=== PATIENT | male | born 1990 | race Caucasian/White ===

== ENCOUNTER 2020-02-02 06:19 | Emergency (ER) | payer SELFPAY ==
[2020-02-02 06:20] VITALS: BP 143/71; PULSE 89; RESP 18; TEMP 36.1; O2SAT 97; BMI 34.9
--- NOTE | 2020-02-02 06:33 | ED.DCSUM_ITS ---
History of Present Illness Chief Complaint: Sore Throat Informant: Patient Narrative: Patient is a 30-year-old previously healthy male who presents to the emergency department for sore throat. He states that it feels swollen. He felt short of breath because of the swelling. His initial symptoms started last night. He states that it does hurt to swallow. He denies fevers but states he has had some intermittent chills. No nausea/vomiting. No diarrhea. He has not been coughing. No known sick contacts. He has also been sneezing. He took Benadryl around 3 AM which he has not gotten significant relief from. He has a history of strep throat as a child but not recently. No headache or stiff neck. No chest pain. No abdominal pain. He denies any new exposures or diet changes. He denies any voice change. Past Medical History - Allergies and Home Meds Allergies/Adverse Reactions: Allergies No Known Allergies Allergy (Verified 02/02/20 06:23) Primary Care Physician: NOT,DEFINED [Primary Care Provider] - Prior records reviewed: Yes Past Medical History: None Surgical History: noncontributory Smoking Status: Never smoker Alcohol: Occasional Review of Systems All systems negative except as indicated General: Reports: Chills. Denies: Fever, Sweats Eyes: Denies: Visual changes - bilaterally, Diplopia ENT: Reports: Sore throat. Denies: Rhinorrhea Cardiovascular: Denies: Chest pain, Palpitations Respiratory: Denies: Cough, Dyspnea on exertion Gastrointestinal: Denies: Abdominal pain, Nausea, Vomiting, Diarrhea Genitourinary: Denies: Dysuria, Hematuria, Frequency Musculoskeletal: Denies: Back pain, Extremity Pain Skin: Denies: Rash, Wounds Neurological: Denies: Headache, Weakness, Numbness Physical Exam Vital Signs/Narrative: Vital Signs Temp Pulse Resp BP Pulse Ox 02/02/20 06:20 97 F L 89 18 143/71 H 97 General: Well nourished, Well developed, No Acute Distress Head: Normocephalic, Atraumatic Eyes: Perrl, EOMI ENT: Moist mucous membranes, No rhinorrhea, - - Uvula does not appear swollen b ut is midline. Tonsillar's are enlarged without any significant exudates. No obvious fluctuating abscess present. Clear oropharynx. No stridor. Neck: Supple, Nontender, - - Cervical lymphadenopathy present. Cardiovascular: Regular rate, Regular rhythm, No murmurs Respiratory: No distress, CTA bilaterally, Chest nontender Abdomen: Soft, Nontender, Nondistended, Normal bowel sounds Back: Nontender, Normal Inspection Extremities: Nontender, No edema Skin: Normal color, No rash Neurological: Alert, Oriented x3, Normal Strength, Normal Sensation Psychological: Normal affect, Normal Mood Diagnostic/Tx/Re-eval - Medical Decision Making Patient presents to the emerge department for sore throat and painful swallowing. He felt like his throat was swollen. Upon arrival to the emergency department he is in no acute distress. He is nontoxic-appearing. Vital signs within normal limits. He is afebrile. On physical exam his uvula is swollen and erythematous but midline. Strep swab obtained and will give a dose of Decadron and Tylenol for symptomatic treatment. Patient does not appear to have an epiglottitis or retropharyngeal abscess. No evidence of Karla's angina. I believe his symptoms are most likely viral in nature. His strep test did come back negative. He is feeling better after Decadron and Tylenol. He does feel comfortable going home at this time. He has not had any issues with handling secretions. Able to swallow here in the ED. We will have him follow-up with his PCP. Warning signs and symptoms for which to return to the ED including any voice change, developing a fever, inability to swallow or difficulty breathing are reviewed. He understands and is agreeable this plan. All questions answered. ED Disposition - Plan for ED Patient: Disposition: Home or Assisted Living Diagnosis: Pharyngitis Instructions: ED Pharyngitis, Viral Referrals: NOT,DEFINED [Primary Care Provider] - 2 Days Additional Instructions: Your symptoms are likely caused by a virus. Strep test was negative. This is treated symptomatically with ibuprofen and tylenol. If you develop difficulty swallowing, fevers, change in voice return to the ED. Otherwise follow up with your PCP. Sore throat is not consistent with COVID-19.
[2020-02-02] MEDS: Acetaminophen 325 MG Tablet 650 MG PO (06:44)
[2020-02-02] MEDS: dexAMETHasone 10 MG/ML Vial PO.IVFORM (06:45)
[2020-02-02 07:40] VITALS: RESP 17
== END 2020-02-02 07:48 | disposition home or self-care (01) ==
LOC: ED 07:31
PROVIDERS: Emergency Provider Emergency Medicine
DX: J02.9 Acute pharyngitis, unspecified (principal)
CPT/HCPCS: 87880; 96374; 99282

== ENCOUNTER 2020-02-20 15:48 | Emergency (ER) | payer SELFPAY ==
[2020-02-20 15:49] VITALS: BP 157/95; PULSE 84; RESP 16; TEMP 35.9; O2SAT 100; BMI 31.7
--- NOTE | 2020-02-20 15:54 | ED.DCSUM_ITS ---
History of Present Illness Chief Complaint: Rash Informant: Patient Onset: Days Context: Sudden Onset Timing: Continuous Quality: Erythematous pruritic rash Location: Face, postauricular, neck and upper extremities Current Severity: Moderate Maximum Severity: Moderate Worsened by: Nothing Relieved by: Nothing Associated Symptoms: No systemic symptoms Narrative: Patient is a 30-year-old male presents with erythematous pruritic rash that started . He denies any systemic symptoms. He denies any allergies. He is unaware of any thing he may have come in contact with that could cause this. Prior similar symptoms: No Recent Illness/Hospitalization: No - Past Medical History (1) No significant past medical history Status: Acute Past Medical History - Allergies and Home Meds Allergies/Adverse Reactions: Allergies No Known Allergies Allergy (Verified 02/20/20 15:50) Primary Care Physician: Care Physician,No Primary [Primary Care Provider] - Prior records reviewed: No Past Medical History: None Surgical History: noncontributory Lives: Spouse/ Significant Other Smoking Status: Never smoker Alcohol: None Drugs: None Review of Systems General: Denies: Chills, Fever, Malaise Eyes: Denies: Visual changes - bilaterally, Blurred Vision - bilaterally ENT: Denies: Bilateral ear pain, Rhinorrhea, Sore throat Cardiovascular: Denies: Chest pain, Palpitations Respiratory: Denies: Dyspnea, Dyspnea on exertion Gastrointestinal: Denies: Nausea, Vomiting, Diarrhea Musculoskeletal: Denies: Myalgias, Arthralgias Skin: Reports: Rash. Denies: Wounds Hematologic: Denies: Easy bruising, Easy bleeding Allergy: Denies: Swelling of the mouth, Swelling of the tongue Physical Exam Vital Signs/Narrative: Vital Signs Temp Pulse Resp BP Pulse Ox 02/20/20 15:49 96.6 F L 84 16 157/95 H 100 Inital Vital Signs reviewed: Yes General: Well nourished, Well developed, Obese, No Acute Distress Head: Normocephalic, Atraumatic Eyes: Perrl, EOMI. Negative for: Scleral icterus ENT: No rhinorrhea. Negative for: Nasal congestion, Sinus tenderness Neck: Supple, Nontender Cardiovascular: Regular rate, Regular rhythm Respiratory: No distress Skin: Normal color, Rash - Erythematous inflammatory rash with mild crusting. Neurological: Alert, Oriented x3, Cranial nerves II-XII grossly intact, Normal Strength, Normal Sensation, Normal Gait Psychological: Normal affect Diagnostic/Tx/Re-eval - Medical Decision Making She has a pruritic erythematous rash that is consistent with contact dermatitis. Since he has no systemic symptoms patient was treated with prednisone and discharged to home. The rash does not look infectious. ED Disposition - Plan for ED Patient: Disposition: Home or Assisted Living Diagnosis: Contact dermatitis Instructions: ED Contact Dermatitis Prescriptions: Prednisone [Deltasone] 40 mg PO DAILY #10 tab Transmission Status: Pending to [facility] Referrals: Care Physician,No Primary [Primary Care Provider] - Doctor,Your [STAFF PHYSICIAN] - 1 Week if not improving
[2020-02-20] MEDS: predniSONE 20 MG Tablet 60 MG PO (16:03)
[2020-02-20 16:04] VITALS: BP 157/95; PULSE 84
== END 2020-02-20 16:06 | disposition home or self-care (01) ==
LOC: ED 16:00
PROVIDERS: Emergency Provider Emergency Medicine
DX: L25.9 Unspecified contact dermatitis, unspecified cause (principal); E66.9 Obesity, unspecified
CPT/HCPCS: 99283

== ENCOUNTER 2020-11-28 08:05 | Emergency (ER) | payer MEDICARE, SELFPAY ==
[2020-11-28 08:05] VITALS: BP 185/91; PULSE 100; RESP 16; TEMP 36.9; O2SAT 97; BMI 34.0
[2020-11-28 08:13] VITALS: RESP 16
[2020-11-28] MEDS: Ibuprofen 600 MG Tablet PO (08:31)
[2020-11-28 08:40] VITALS: TEMP 37.1
--- NOTE | 2020-11-28 08:46 | EDS_ITS ---
HPI History of Present Illness Chief Complaint: Weakness Informant: patient Narrative Narrative: Patient is a 30-year-old male with no significant past medical history presenting with concern for Covid. Patient's daughter tested positive this morning. He notes last night he started feeling weak and his knees gave out on him. He was coughing. He states he feels like crap. He does have some mild shortness of breath. Denies any chest pain. He had a temperature of 99.6 last night. He took some DayQuil around 7AM with a decongestant in it. He did not have his Covid vaccine. Symptoms going on for the past 2 days. No other complaints at this time. PFSH PFSH Medical History no medical history Home Medications prednisone 40 mg PO DAILY #10 tab 02/20/20 [Rx Last Taken Unknown] ibuprofen 600 mg PO Q6H PRN #30 tab 11/28/20 [Rx Last Taken Unknown] Allergy/AdvReac Type Severity Reaction Status Date / Time No Known Allergies Allergy Verified 11/28/20 08:07 Social History Smoking Status: Never smoker ROS ROS ED Constitutional Constitutional ED: Reports chills, fever(s) and sweats Eyes Eyes: Denies change in vision ENT ENT ED: Denies ear pain, rhinorrhea or sore throat Cardiovascular Cardiovascular: Denies chest pain Respiratory/Chest Respiratory/Chest: Reports cough, dyspnea and dyspnea on exertion Gastrointestinal Gastrointestinal: Denies abdominal pain, nausea or vomiting Genitourinary Genitourinary ED: Denies dysuria Musculoskeletal Musculoskeletal: Reports myalgias; Denies arthralgias Integumentary Denies rash Neurologic Neurologic: Reports headache(s) and weakness Psychiatric Psychiatric: Denies depression EXAM Physical Exam Const Vital Signs: 11/28/20 08:05 11/28/20 08:13 11/28/20 08:40 Temperature 98.4 F 98.8 F Temperature Source Temporal Oral Pulse Rate 100 Respiratory Rate 16 16 Respiratory Effort Normal Non-Labored Respiratory Pattern Normal Blood Pressure 185/91 H Blood Pressure Mean 122 Pulse Ox 97 Oxygen Delivery Method Room Air 11/28/20 09:06 Temperature Temperature Source Pulse Rate Respiratory Rate 16 Respiratory Effort Respiratory Pattern Blood Pressure Blood Pressure Mean Pulse Ox Oxygen Delivery Method Positive well nourished and well developed General Appearance ED: well developed HEENT Reports TM's clear and moist mucous membranes Tympanic Membrane ED: Yes TM's clear Eyes PERRL and EOMs intact bilaterally Neck no lymphadenopathy and supple Chest Wall inspection of chest normal Resp normal respiratory effort and clear to auscultation bilaterally Cardio regular rate and no murmurs Rate: tachycardic GI normal to inspection, nondistended, normoactive bowel sounds Extremity normal to inspection General Extremety ED: Negative for edema or tenderness General Extremity: Negative for edema Neuro oriented x3 Sensorium / Orientation: alert Motor Exam: Negative for general weakness Psych mental status grossly normal Skin no rashes or lesions noted MDM MDM MDM Narrative Medical decision making narrative: Patient evaluated for 2 days of Covid-like symptoms. He has a positive contact. He is positive in the ER. He is hypertensive however suspect is from the [id number] cough medicine he took prior to arrival. He is not hypoxic. Patient is a candidate for monoclonal antibody due to his weight. He is referred for monoclonal antibody. He will be treated symptomatically with Motrin and [id number] cold and flu medicines. Counseled to take decongestions for high blood pressure to prevent further hypertension. Counseled on return precautions. Discharged home in stable condition. Discharge Plan Triage Chief Complaint: Weakness ED Provider: Keena Isabel Dx/Rx/DC Orders Clinical Impression: COVID-19 virus infection Instructions: Coronavirus Disease 2019 (COVID-19): Caring for Yourself or Others Prescriptions: New ibuprofen 600 mg tablet 600 mg PO Q6H PRN (Reason: fever or pain) Qty: 30 RF: 0 No Action prednisone 20 MG tablet 40 mg PO DAILY Qty: 10 RF: 0 Other Ambulatory Orders: COVID Outpatient Monoclonal Antibody Referral (Routine) Timeframe: 1 Day Facility: [facility] - Location: [facility] Ordered By: Dr. Keena Isabel Primary Care Provider: Care Physician,No Primary Referrals: Annie iLlly DO [STAFF PHYSICIAN] - Care Physician,No Primary [Primary Care Provider] - Disposition Disposition: Home, Self Care Discharge Date/Time: 11/28/20 09:07
[2020-11-28 09:06] VITALS: RESP 16
== END 2020-11-28 09:07 | disposition home or self-care (01) ==
PROVIDERS: Emergency Provider Emergency Medicine
DX: U07.1 COVID-19 (principal)
CPT/HCPCS: 87426; 99283

== ENCOUNTER 2021-02-22 18:46 | Emergency (ER) | payer SELFPAY ==
[2021-02-22 18:47] VITALS: BP 152/94; PULSE 78; RESP 15; TEMP 35.7; O2SAT 98; BMI 36.1
--- NOTE | 2021-02-22 19:32 | US_ITS ---
STUDY: ABDOMINAL ULTRASOUND - RIGHT UPPER QUADRANT REASON FOR VISIT: Male, 31 years old PAIN-RUQ TECHNIQUE: Ultrasound evaluation of the right upper quadrant was performed with real-time and static ferrera-scale imaging. TECHNICAL QUALITY: Adequate. COMPARISON: None. FINDINGS: Liver: The liver measures 17.2 cm. There is diffusely increased echogenicity of the liver. The bile ducts are within normal limits. There is hepatic color flow. The direction of portal flow is hepatopetal. There is no demonstrated mass lesion. Gallbladder: Gallbladder is mildly distended with maximal linear dimension of 11.1 cm. Intraluminal stones are present with a stone at the level of the gallbladder neck. A sonographic Caba sign was reported. No. Cholecystic fluid. No ductal dilatation. Common Bile Duct (C.B.D.): The common bile duct measures 6 mm. Pancreas: Normal size of the head, body and tail of the pancreas. There is normal echogenicity of the pancreas. There is no demonstrated pancreatic mass or cyst. Pancreatic tail was not visualized. Right Kidney: Normal size of the right kidney. The right kidney measures 11.2 x 5.8 x 7.1 cm.. Normal renal cortex. The right cortex measures 1.9 cm. There is no demonstrated renal mass or cyst. There is no right hydronephrosis. US/Gallbladder IMPRESSION: 1. Cholelithiasis, gallbladder is moderately distended. There is a calcification at the gallbladder neck, and there is a reported sonographic Caba sign. Findings consistent with developing cholecystitis. 2. No perinephric fluid collections, or ductal dilatation. 3. Fatty infiltration liver consistent with hepatic steatosis without focal hepatic masses or intrahepatic ductal dilatation. 4. Normal appearance of the RIGHT kidney. Electronically Signed: Nimesh Franklin MD at 21:13 EST Tel , Service support ,
--- NOTE | 2021-02-22 19:33 | ED.VIS.GI ---
HPI HPI - GI History of Present Illness Chief Complaint: Abd Pain Informant: patient Abdominal Pain/Flank Pain Onset: Yesterday Context: Sudden Onset Timing: Continuous Quality: Aching and Sharp Location: RUQ Worsened by: Food Relieved by: - (Vomiting) Nausea/Vomiting/Emesis GI Symptom: Positive for Nausea and Vomiting Quality: Negative for Blood streaks, Coffee ground and Hematemesis Diarrhea/Melena/Hematochezia GI Symptom: Negative for Diarrhea, Melena and Hematochezia Stool Quality: Negative for Black, Maroon and BRB per rectum Associated Symptoms Associated Symptoms: Negative for Dysuria and Hematuria Narrative Narrative: Patient presents with right upper quadrant abdominal pain that began last night. Patient states that began in his right upper quadrant. Patient states it improved last night and he was able to sleep. Patient states he ate something this morning and his pain came back. Patient states it began approximately 1 hour after eating. Patient states the pain radiates into his back. Patient states he got better after vomiting. Patient denies any hematemesis or coffee-ground emesis. Patient denies any diarrhea, melena, or hematochezia. Patient denies any dysuria or hematuria. PFSH PFSH Medical History no medical history Home Medications prednisone 40 mg PO DAILY #10 tab 02/20/20 [Rx Last Taken Unknown] ibuprofen 600 mg PO Q6H PRN #30 tab 11/28/20 [Rx Last Taken Unknown] hydrocodone-acetaminophen 1 tab PO Q6H PRN PRN 3 Days #10 tablet 02/22/21 [Rx Last Taken Unknown] ondansetron 4 mg PO Q8H PRN PRN #10 tab 02/22/21 [Rx Last Taken Unknown] Allergy/AdvReac Type Severity Reaction Status Date / Time No Known Allergies Allergy Verified 11/28/20 08:07 Surgical History no surgical history Social History Smoking Status: Never smoker ROS ROS ED Constitutional Constitutional ED: Denies chills or fever(s) Eyes Eyes: Denies blurry vision or change in vision ENT ENT ED: Denies rhinorrhea or sore throat Cardiovascular Cardiovascular: Denies chest pain or palpitations Respiratory/Chest Respiratory/Chest: Reports dyspnea; Denies cough Gastrointestinal Gastrointestinal: Reports abdominal pain, nausea and vomiting; Denies diarrhea or melena Genitourinary Genitourinary ED: Denies dysuria or hematuria Musculoskeletal Musculoskeletal: Reports back pain; Denies neck pain Integumentary Denies abscess or rash Neurologic Neurologic: Denies headache(s) or weakness Allergic/Immunologic Allergic/Immunologic ED: Denies mouth swelling or urticaria EXAM Physical Exam Const Vital Signs: 02/22/21 18:47 02/22/21 23:07 Temperature 96.2 F L Temperature Source Temporal Pulse Rate 78 81 Respiratory Rate 15 18 Blood Pressure 152/94 H 138/86 H Blood Pressure Mean 113 Pulse Ox 98 Oxygen Delivery Method Room Air Positive well nourished and well developed General Appearance ED: well developed HEENT Reports moist mucous membranes Neck supple and no JVD Resp normal respiratory effort and clear to auscultation bilaterally Cardio regular rate, regular rhythm and no murmurs GI normal to inspection, nondistended, normoactive bowel sounds and non-distended Auscultation: normoactive bowel sounds Palpation: soft and tender epigastric, RUQ and Caba's sign; Negative for guarding or rebound tenderness present Extremity normal to inspection General Extremety ED: Negative for edema or tenderness General Extremity: Negative for edema Neuro oriented x3, CN's II-XII intact bilaterally and no sensory deficits noted Sensorium / Orientation: alert Motor Exam: strength 5/5 throughout Psych mental status grossly normal Skin no rashes or lesions noted MDM MDM MDM Narrative Medical decision making narrative: Patient was given IV fluids, morphine, and Zofran. CBC shows a slight leukocytosis of 11.4. Comprehensive metabolic profile shows a normal bilirubin. AST was 264, ALT was 375, and alk phos was 134. The remainder was within normal limits. Urinalysis does not show any evidence of urinary tract infection. Gallbladder ultrasound was obtained. There is cholelithiasis. The gallbladder is moderately distended. There is a calcification at the gallbladder neck. There is no pericholecystic fluid. There is no ductal dilatation. This is consistent with developing cholecystitis. This was interpreted by the radiologist and reviewed by myself. Patient is resting comfortably on reevaluation. Case was discussed with Dr. Gutierres from general surgery. He stated that if the patient can tolerate p.o. fluids and bland diet, he may follow-up in his office on Saturday. Patient thinks he will be able to do this. Patient was given prescriptions for Zofran and Sibley. Patient was instructed to avoid fried foods, fatty foods, greasy foods. Patient was instructed to call Dr. Gutierres's office tomorrow to schedule appointment for Saturday. Patient understands and is agreeable with the plan. All questions were answered. Lab Data Attestation: I reviewed the patient's lab results. Labs: Laboratory Results - last 24 hr 02/22/21 02/22/21 02/22/21 19:00 19:13 19:13 WBC 11.4 H RBC 5.49 Hgb 15.6 Hct 46.6 MCV 84.9 MCH 28.4 MCHC 33.5 RDW Std Deviation 38.7 RDW Coeff of Narda 12.6 Plt Count 261 MPV 11.9 Immature Gran % (Auto) 0.300 Neut % (Auto) 57.9 Lymph % (Auto) 30.1 Fallon % (Auto) 8.8 Eos % (Auto) 2.3 Baso % (Auto) 0.6 Absolute Neuts (auto) 6.6 Absolute Lymphs (auto) 3.44 Nucleated RBC % 0 Sodium 141 Potassium 3.9 Chloride 105 Carbon Dioxide 31.0 Anion Gap 5 BUN 12 Creatinine 1.08 Estim Creat Clear Calc 99.10 Est GFR (MDRD) Af Amer 103 Est GFR (MDRD) Non-Af 85 BUN/Creatinine Ratio 11.1 Glucose 97 Calcium 9.3 Total Bilirubin 0.80 AST 264 H ALT 375 H Alkaline Phosphatase 134 H Total Protein 8.1 Albumin 3.7 Globulin 4.4 H Albumin/Globulin Ratio 0.8 L Lipase 101 Urine Color Ellyn Urine Clarity Clear Urine pH 5.0 Ur Specific [place] 1.025 Urine Protein 15 H Urine Glucose (UA) Normal Urine Ketones 5 H Urine Occult Blood 10 H Urine Nitrite Negative Urine Bilirubin Negative Urine Urobilinogen 1 H Ur Leukocyte Esterase Negative Urine RBC 0 SEEN Urine WBC 0 SEEN Ur Squamous Epith Cells 0 SEEN Urine Bacteria 0 SEEN Urine Mucus 0 SEEN Radiography Diagnostic Testing: Clinical Impression(s) from Imaging Studies Gallbladder Ultrasound 02/22/21 19:32 IMPRESSION: 1. Cholelithiasis, gallbladder is moderately distended. There is a calcification at the gallbladder neck, and there is a reported sonographic Caba sign. Findings consistent with developing cholecystitis. 2. No perinephric fluid collections, or ductal dilatation. 3. Fatty infiltration liver consistent with hepatic steatosis without focal hepatic masses or intrahepatic ductal dilatation. 4. Normal appearance of the RIGHT kidney. Electronically Signed: Nimesh Franklin MD at 21:13 EST Tel , Service support , Discharge Plan Triage Chief Complaint: Abd Pain ED Provider: Reid Douglas Dx/Rx/DC Orders Clinical Impression: Cholelithiasis and cholecystitis without obstruction Instructions: ED Abdominal Pain Gallstone Poss Prescriptions: New hydrocodone-acetaminophen [hydrocodone-acetaminophen] 1 TABLET tablet 1 tab PO Q6H PRN PRN (Reason: Pain) 3 Days Qty: 10 RF: 0 ondansetron [ondansetron] 4 MG tablet 4 mg PO Q8H PRN PRN (Reason: Nausea) Qty: 10 RF: 0 No Action prednisone 20 MG tablet 40 mg PO DAILY Qty: 10 RF: 0 ibuprofen 600 mg tablet 600 mg PO Q6H PRN (Reason: fever or pain) Qty: 30 RF: 0 Primary Care Provider: Care Physician,No Primary Referrals: Zander Gutierres MD [STAFF PHYSICIAN] - 3-5 Days (Call tomorrow to schedule an appointment on Saturday) Care Physician,No Primary [Primary Care Provider] - Disposition Disposition: Home, Self Care Discharge Date/Time: 02/22/21 23:08
[2021-02-22] MEDS: Ondansetron 4 MG/2 ML Vial IV (19:47)
[2021-02-22] MEDS: Morphine 4 MG/ML Syringe IV (19:47)
[2021-02-22] MEDS: 0.9% Normal Saline 1,000 ML 1000 ML IV (19:47)
[2021-02-22 19:55] LABS: Absolute Lymphocyte Count 3.44 X10^3/uL (0.83-4.51); Absolute Neutrophil Count 6.6 X10^3/uL (2.0-7.7); Basophil# 0.07 X10^3/uL; Basophil% 0.6 % (0-1); Eosinophil# 0.26 X10^3/uL; Eosinophils% 2.3 % (0-5); Hematocrit 46.6 % (40-54); Hemoglobin 15.6 g/dL (13.0-16.5); Lymphocyte # 3.44 X10^3/ul (0.83-4.51); Lymphocyte % 30.1 % (19-41); Mean Corp Hgb Conc 33.5 g/dL (32-36); Mean Corpuscular Hgb 28.4 pg (27.0-32.0); Mean Corpuscular Volume 84.9 fL (80-94); Mean Platelet Vol. 11.9 fl (6.2-12.0); Monocyte# 1.01 X10^3/uL; Monocyte% 8.8 % (0-10); NRBC Flagged by Analyzer 0 % (0-5); Neutrophil # 6.62 X10^3/uL (2.7-7.7); Neutrophil % 57.9 % (47-70); Platelet Count 261 K/mm3 (150-450); RBC Distribution Width CV 12.6 % (11.6-14.6); RBC Distribution Width SD 38.7 fl (35.1-43.9); Red Blood Count 5.49 M/mm3 (4.6-6.2); White Blood Count 11.4 K/mm3 (4.4-11.0)
[2021-02-22 20:02] LABS: Bacteria 0 SEEN /hpf (None Seen); Mucous, Urine 0 SEEN /hpf (<or=2+); Red Blood Cells-Urine 0 SEEN /hpf (0-5); Squamous Epithelial Cells - UA 0 SEEN /hpf (0-5); White Blood Cells 0 SEEN /hpf (0-5)
[2021-02-22 20:03] LABS: Color, Urine Amber (Yellow); Glucose, Dipstick Normal (Normal); Ketone-Dipstick 5 mg/dl (Negative); Leukocyte Esterase-Dipstick Negative /ul (Negative); Nitrite-Dipstick Negative (Negative); Occult Blood-Urine 10 /ul (Negative); Protein-Dipstick 15 mg/dl (Negative); Specific Gravity, Urine 1.025 (1.002-1.030); Urine Bilirubin Dipstick Negative (Negative); Urine Clarity Clear (Clear); Urine Urobilinogen 1 mg/dl (Normal)
[2021-02-22 20:04] LABS: ALB/GLOB Ratio 0.8 RATIO (0.9-2.4); AST(SGOT) 264 U/L (15-37); Alanine Aminotransfer ALT/SGPT 375 U/L (16-61); Albumin, Serum 3.7 g/dL (3.2-5.0); Alkaline Phosphatase 134 U/L (45-117); Anion Gap 5 (5-15); BUN 12 mg/dL (7-18); BUN/Creat Ratio 11.1 RATIO (10-20); Calcium,Total 9.3 mg/dL (8.5-10.1); Chloride 105 mmol/L (98-107); Creatinine, Serum 1.08 mg/dL (0.70-1.30); EST Glomerular Filtration Rate 85 mL/min (>60); Est Glom Filt Rate - Afr Amer 103 mL/min (>60); Globulin 4.4 g/dL (2.2-4.2); Glucose 97 mg/dL (74-106); Lipase 101 U/L (73-393); Potassium 3.9 mmol/L (3.5-5.1); Protein, Total 8.1 g/dL (6.4-8.2); Sodium Level 141 mmol/L (136-145)
[2021-02-22 23:07] VITALS: BP 138/86; PULSE 81; RESP 18
== END 2021-02-22 23:08 | disposition home or self-care (01) ==
PROVIDERS: Emergency Provider Emergency Medicine
DX: K80.10 Calculus of gallbladder with chronic cholecystitis without obstruction (principal); Z79.52 Long term (current) use of systemic steroids; Z79.899 Other long term (current) drug therapy
CPT/HCPCS: 76705; 80053; 81001; 83690; 85025; 96361; 96374; 96375; 99282; J7030; A4216; J2405

== ENCOUNTER 2021-02-23 08:37 | Observation (INO) | payer SELFPAY ==
[2021-02-23] VITALS (12 sets, daily range): BP systolic 107–155; BP diastolic 54–117; PULSE 51–87; RESP 16–19; TEMP 36.3–36.8; O2SAT 93–98; BMI 35.4
--- NOTE | 2021-02-23 | GALL_PTH ---
PATIENT: SERGEY MARTIN LOC: MS2 U#:[id number] AGE/SX: 31/M ROOM: [facility] [place] RE02/23/[address]: Dr. Willis Hess MD : 1990 BED: 1 DIS: 02/24/2021 SPEC #: [id number] RECD: 02/23/21 14:10 STATUS: NAKUL MALENA #: [id number] MELCHOR: 02/23/21 00:[address]: Willis Hess DEPT: SURGICAL PATHOLOGY RECD BY: Reilly Gastelum ENTERED: 02/26/21 16:54 SP TYPE: VISH CHUNG DR: No Primary Care Phys Tissues: Gallbladder, NOS Procedures: Surgery Specimen Level III HEADER OPERATION: Laparoscopic cholecystectomy with IOC PRE-OP DIAGNOSIS: Acute cholecystitis TISSUE SUBMITTED: Gallbladder MICROSCOPIC DIAGNOSIS Gallbladder, cholecystectomy: Chronic cholecystitis, cholelithiasis and cholesterolosis. SJ:josey 02/28/2021 MICROSCOPIC DESCRIPTION Slides are reviewed. GROSS DESCRIPTION Received is one container labeled with the patient's name and designated gallbladder. The specimen consists of a gallbladder measuring 9 cm in length and up to 3.5 cm in diameter. The external surface is pink-uribe, smooth and glistening for the most part. Focally it is granular, hemorrhagic and contains cautery artifact. The gallbladder contains green-yellow mucoid bile and one irregular yellowish, mulberry stone measuring 2 x 1.5 x 1 cm. The mucosa also shows several yellowish streaks consistent with cholesterolosis. The mucosa is bile-stained and without any mass lesions. The gallbladder wall measures up to 0.3 cm in thickness. [employer] sections from the gallbladder and the cystic duct are submitted in one cassette. / SJ:josey 02/27/21 TC:3 [facility]: [id number]
--- NOTE | 2021-02-23 09:15 | EDS_ITS ---
HPI History of Present Illness Chief Complaint: Abd Pain Informant: patient Onset/Context/Timing Onset: Days Context: Gradual Onset Timing: Waxes and wanes Current Severity: Moderate Maximum Severity: Moderate Narrative Narrative: Patient presents with recurrent right upper quadrant pain and vomiting. Patient was seen in the ER yesterday for the same and diagnosed with gallstones. He had a white count of 11.4 and elevated AST, ALT, alk phos. Gallbladder was moderately distended on ultrasound with calcification of the gallbladder neck. No pericholecystic fluid. Patient was discussed with Dr. Gutierres from general surgery. He stated that as long as the patient could tolerate p.o. fluids and a bland diet he could be seen in the office next week. Patient states that his pain has worsened since going home and is unable to keep down liquids or pain medication. PFSH PFSH Medical History no medical history no medical history Home Medications prednisone 40 mg PO DAILY #10 tab 02/20/20 [Rx Last Taken Unknown] ibuprofen 600 mg PO Q6H PRN #30 tab 11/28/20 [Rx Last Taken Unknown] hydrocodone-acetaminophen 1 tab PO Q6H PRN PRN 3 Days #10 tablet 02/22/21 [Rx Last Taken Unknown] ondansetron 4 mg PO Q8H PRN PRN #10 tab 02/22/21 [Rx Last Taken Unknown] Allergy/AdvReac Type Severity Reaction Status Date / Time No Known Allergies Allergy Verified 02/23/21 08:39 Surgical History no surgical history Social History Smoking Status: Never smoker ROS ROS ED Constitutional Constitutional ED: Denies chills or fever(s) Eyes Eyes: Denies change in vision ENT ENT ED: Denies sore throat Cardiovascular Cardiovascular: Denies chest pain Respiratory/Chest Respiratory/Chest: Denies cough or dyspnea Gastrointestinal Gastrointestinal: Reports abdominal pain, nausea and vomiting; Denies diarrhea Genitourinary Genitourinary ED: Denies dysuria Musculoskeletal Musculoskeletal: Denies back pain Integumentary Denies rash Neurologic Neurologic: Denies headache(s) or weakness Allergic/Immunologic Allergic/Immunologic ED: Denies urticaria EXAM Physical Exam Const Vital Signs: 02/23/21 08:38 02/23/21 09:34 02/23/21 09:36 Temperature 97.3 F L 97.3 F L 97.3 F L Temperature Source Temporal Temporal Temporal Pulse Rate 70 51 L 51 L Respiratory Rate 16 19 H 19 H Blood Pressure 155/117 H 129/99 H 129/99 H Blood Pressure Mean 129 109 109 Blood Pressure Source Monitor Pulse Ox 97 97 97 Oxygen Delivery Method Room Air Room Air Room Air Positive well nourished and well developed General Appearance ED: well developed HEENT Reports moist mucous membranes Eyes PERRL and EOMs intact bilaterally Neck supple Chest Wall inspection of chest normal and palpation of chest normal Resp normal respiratory effort and clear to auscultation bilaterally Cardio regular rate and regular rhythm GI Auscultation: hypoactive bowel sounds Palpation: soft and tender RUQ Extremity normal to inspection Neuro oriented x3 Sensorium / Orientation: alert Skin no rashes or lesions noted MDM MDM MDM Narrative Medical decision making narrative: Patient's work-up from yesterday is reviewed. Patient given morphine and Zofran for pain along with a dose of Zosyn. Lab work repeated. Covid swab obtained. Lab Data Attestation: I reviewed the patient's lab results. Labs: Laboratory Results - last 24 hr 02/23/21 02/23/21 09:23 09:23 WBC 6.8 RBC 5.35 Hgb 15.3 Hct 45.7 MCV 85.4 MCH 28.6 MCHC 33.5 RDW Std Deviation 40.5 RDW Coeff of Narda 13.1 Plt Count 244 MPV 11.4 Immature Gran % (Auto) 0.300 Neut % (Auto) 62.4 Lymph % (Auto) 25.6 [place] % (Auto) 8.5 Eos % (Auto) 2.2 Baso % (Auto) 1.0 Absolute Neuts (auto) 4.2 Absolute Lymphs (auto) 1.74 Nucleated RBC % 0 Sodium 139 Potassium 4.3 Chloride 105 Carbon Dioxide 30.0 Anion Gap 4 L BUN 11 Creatinine 1.05 Estim Creat Clear Calc 101.94 Est GFR (MDRD) Af Amer 106 Est GFR (MDRD) Non-Af 88 BUN/Creatinine Ratio 10.5 Glucose 118 H Calcium 9.2 Total Bilirubin 2.00 H Direct Bilirubin 1.15 H AST 397 H ALT 652 H Alkaline Phosphatase 177 H Total Protein 7.9 Albumin 3.4 Globulin 4.5 H Lipase 92 Treatment and Re-Evaluation Comments:: White count is now normal at 6.8. Chemistry studies and LFTs show worsened liver tests and bilirubin levels. Lipase is normal at 92. I spoke to Dr. Hess shortly after seeing the patient. He will plan to take the patient to the operating room this afternoon for cholecystectomy. Patient will be kept n.p.o. Discharge Plan Triage Chief Complaint: Abd Pain ED Provider: Gayatri Bob Dx/Rx/DC Orders Clinical Impression: Acute cholecystitis Prescriptions: No Action prednisone 20 MG tablet 40 mg PO DAILY Qty: 10 RF: 0 ibuprofen 600 mg tablet 600 mg PO Q6H PRN (Reason: fever or pain) Qty: 30 RF: 0 hydrocodone-acetaminophen [hydrocodone-acetaminophen] 1 TABLET tablet 1 tab PO Q6H PRN PRN (Reason: Pain) 3 Days Qty: 10 RF: 0 ondansetron [ondansetron] 4 MG tablet 4 mg PO Q8H PRN PRN (Reason: Nausea) Qty: 10 RF: 0 Primary Care Provider: Care Physician,No Primary Referrals: Care Physician,No Primary [Primary Care Provider] - Disposition Disposition: Acute Care Hospital [facility]
[2021-02-23 09:31] LABS: Absolute Lymphocyte Count 1.74 X10^3/uL (0.83-4.51); Absolute Neutrophil Count 4.2 X10^3/uL (2.0-7.7); Basophil# 0.07 X10^3/uL; Eosinophil# 0.15 X10^3/uL; Eosinophils% 2.2 % (0-5); Hematocrit 45.7 % (40-54); Hemoglobin 15.3 g/dL (13.0-16.5); Lymphocyte # 1.74 X10^3/ul (0.83-4.51); Lymphocyte % 25.6 % (19-41); Mean Corp Hgb Conc 33.5 g/dL (32-36); Mean Corpuscular Hgb 28.6 pg (27.0-32.0); Mean Corpuscular Volume 85.4 fL (80-94); Mean Platelet Vol. 11.4 fl (6.2-12.0); Monocyte# 0.58 X10^3/uL; Monocyte% 8.5 % (0-10); NRBC Flagged by Analyzer 0 % (0-5); Neutrophil # 4.24 X10^3/uL (2.7-7.7); Neutrophil % 62.4 % (47-70); Platelet Count 244 K/mm3 (150-450); RBC Distribution Width CV 13.1 % (11.6-14.6); RBC Distribution Width SD 40.5 fl (35.1-43.9); Red Blood Count 5.35 M/mm3 (4.6-6.2); White Blood Count 6.8 K/mm3 (4.4-11.0)
[2021-02-23] MEDS: Morphine 4 MG/ML Syringe IV (09:32)
[2021-02-23] MEDS: Ondansetron 4 MG/2 ML Vial IV (09:32)
[2021-02-23] MEDS: 0.9% Normal Saline 1,000 ML 150 ML IV (09:32)
--- NOTE | 2021-02-23 09:44 | RAD_ITS ---
STUDY: INTRAOPERATIVE CHOLANGIOGRAM. REASON FOR EXAM: Male, 31 years old. LAP NASIR FLUOROSCOPY TIME (if supplied): ( 19 seconds ) minutes/seconds. A cine loop of 131 images were obtained. TECHNIQUE: Intraoperative Cholangiogram was performed by the surgeon. Imaging was submitted. COMPARISON: None. FINDINGS: The visualized intra and extrahepatic biliary ducts are unremarkable. No intraluminal filling defect is seen. There is free flow of contrast into the duodenum. RAD/Cholangiogram/ O R,Initial IMPRESSION: Unremarkable intraoperative cholangiogram. Electronically Signed: Reyes Figueroa MD at 14:04 EST , Service support ,
[2021-02-23 09:47] LABS: AST(SGOT) 397 U/L (15-37); Alanine Aminotransfer ALT/SGPT 652 U/L (16-61); Albumin, Serum 3.4 g/dL (3.2-5.0); Alkaline Phosphatase 177 U/L (45-117); Anion Gap 4 (5-15); BUN 11 mg/dL (7-18); BUN/Creat Ratio 10.5 RATIO (10-20); Bilirubin, Direct 1.15 mg/dL (0.00-0.30); Calcium,Total 9.2 mg/dL (8.5-10.1); Chloride 105 mmol/L (98-107); Creatinine, Serum 1.05 mg/dL (0.70-1.30); EST Glomerular Filtration Rate 88 mL/min (>60); Est Glom Filt Rate - Afr Amer 106 mL/min (>60); Estimated Creatinine Clearance 101.94 ml/min; Globulin 4.5 g/dL (2.2-4.2); Glucose 118 mg/dL (74-106); Lipase 92 U/L (73-393); Potassium 4.3 mmol/L (3.5-5.1); Protein, Total 7.9 g/dL (6.4-8.2); Sodium Level 139 mmol/L (136-145)
--- NOTE | 2021-02-23 11:09 | HP.PCM.SX_ITS ---
HPI - General HPI Narrative SERGEY MARTIN, is a 31 M who presents with right upper quadrant pain. Patient was in the emergency room yesterday evening and was found to have cholelithiasis and slightly elevated LFTs. Today he is here with continuing pain and unable to tolerate a diet. He does have nausea and vomiting. No fevers or chills. Pain is in the right upper quadrant does not radiate. PFSH Medical History no medical history Home Medications prednisone 40 mg PO DAILY #10 tab 02/20/20 [Rx Last Taken Unknown] ibuprofen 600 mg PO Q6H PRN #30 tab 11/28/20 [Rx Last Taken Unknown] hydrocodone-acetaminophen 1 tab PO Q6H PRN PRN 3 Days #10 tablet 02/22/21 [Rx Last Taken Unknown] ondansetron 4 mg PO Q8H PRN PRN #10 tab 02/22/21 [Rx Last Taken Unknown] Allergy/AdvReac Type Severity Reaction Status Date / Time No Known Allergies Allergy Verified 02/23/21 10:11 Family History (Updated 02/23/21 @ 11:[address] Willis Hess MD) Mother Parkinsons disease Surgical History no surgical history Social History Smoking Status: Never smoker ROS Constitutional Constitutional: Reports anorexia; Denies fatigue or fever(s) Eyes Eyes: Denies blurry vision ENT HEENT: Denies abnormal hearing Cardiovascular Cardiovascular: Denies chest pain Respiratory/Chest Respiratory/Chest: Denies cough or dyspnea Gastrointestinal Gastrointestinal: Reports abdominal pain, nausea and vomiting; Denies coffee ground emesis Genitourinary Genitourinary: Denies change in urinary stream Integumentary Integumentary: Denies jaundice Neurologic Neurologic: Denies dizziness Psychiatric Psychiatric: Denies anxiety Endocrine Endocrinology: Denies flushing Hematologic/Lymphatic Hematologic/Lymphatic: Denies easy bleeding Vital Signs Vital Signs Vital Signs: 02/23/21 08:38 02/23/21 09:34 02/23/21 09:36 Temperature 97.3 F L 97.3 F L 97.3 F L Temperature Source Temporal Temporal Temporal Pulse Rate 70 51 L 51 L Respiratory Rate 16 19 H 19 H Respiratory Pattern Blood Pressure 155/117 H 129/99 H 129/99 H Blood Pressure Mean 129 109 109 Blood Pressure Source Monitor Pulse Ox 97 97 97 Oxygen Delivery Method Room Air Room Air Room Air 02/23/21 10:13 Temperature Temperature Source Pulse Rate Respiratory Rate Respiratory Pattern Normal Blood Pressure Blood Pressure Mean Blood Pressure Source Pulse Ox Oxygen Delivery Method Weight Weight: 240 lb 4.862 oz Body Mass Index (BMI) 35.4 Physical Exam Const alert and oriented x3 Resp normal respiratory effort and normal air movement Cardio regular rate and regular rhythm GI soft to palpation and non-distended Palpation: tender RUQ Bladder / Kidney Exam: No catheter in place Extremity normal capillary refill Results Lab / Micro Data Result Diagrams: 02/23/21 09:23 02/23/21 09:23 Labs: Laboratory Results - last 24 hr 02/23/21 09:23: WBC 6.8, RBC 5.35, Hgb 15.3, Hct 45.7, MCV 85.4, MCH 28.6, MCHC 33.5, RDW Std Deviation 40.5, RDW Coeff of Narda 13.1, Plt Count 244, MPV 11.4, Immature Gran % (Auto) 0.300, Neut % (Auto) 62.4, Lymph % (Auto) 25.6, [place] % (Auto) 8.5, Eos % (Auto) 2.2, Baso % (Auto) 1.0, Absolute Neuts (auto) 4.2, Absolute Lymphs (auto) 1.74, Nucleated RBC % 0 02/23/21 09:23: Sodium 139, Potassium 4.3, Chloride 105, Carbon Dioxide 30.0, Anion Gap 4 L, BUN 11, Creatinine 1.05, Estim Creat Clear Calc 101.94, Est GFR (MDRD) Af Amer 106, Est GFR (MDRD) Non-Af 88, BUN/Creatinine Ratio 10.5, Glucose 118 H, Calcium 9.2, Total Bilirubin 2.00 H, Direct Bilirubin 1.15 H, AST 397 H, ALT 652 H, Alkaline Phosphatase 177 H, Total Protein 7.9, Albumin 3.4, Globulin 4.5 H, Lipase 92 Micro: Microbiology 02/23/21 09:20 Nasal Secretion SARS-CoV-2 Antigen (Rapid) - Final Assessment & Plan Assessment/Plan (1) Acute cholecystitis: PLAN: The patient has likely acute cholecystitis with a stone in the neck of the gallbladder. The patient's LFTs have increased since yesterday. I recommend the patient have laparoscopic cholecystectomy with cholangiogram. I discussed the possibility of having to perform ERCP if choledocholithiasis is identified. I discussed the procedure in detail with the patient. I discussed the risks, benefits, and alternatives of the procedure. I discussed the risks including but not limited to bleeding, infection, injury to surrounding organs such as the liver, bile duct, bowels. I did discuss the possibility of having to convert to an open procedure as well as the possibility that if any injuries occurred this may necessitate further surgery at a tertiary care center. Willis Hess MD Pager: [facility] [address] [place] [address] [address] [place] [address] Office:
[2021-02-23] MEDS: Bupivacaine 0.25% 30 ML Vial (12:35)
--- NOTE | 2021-02-23 13:21 | PCM.OPRPT ---
Problems Associated Problem List Diagnoses (1) Acute cholecystitis: Report of Operation Date of Procedure: 02/23/21 Pre-Operative Diagnosis: Acute cholecystitis Post-Operative Diagnosis: Same Surgery/Procedure Performed:: Laparoscopic cholecystectomy with cholangiogram Description of Surgical Findings:: Inflamed gallbladder with passage of contrast to the small bowel with no obvious defects identified during IOC Specimen's removed: Gallbladder Description of Procedure: After obtaining informed consent patient was brought back to the operating room. General anesthesia was induced. The abdomen was prepped and draped in usual sterile fashion. A small midline incision was made superior to the umbilicus and deepened to the level of fascia. The fascia was elevated and incised. Next the peritoneum was elevated and incised in the same fashion. Finger sweep was performed and the Cantor trocar was placed into the abdomen. The balloon was inflated. The abdomen was inflated to 15 mmHg. Next a camera was introduced into the abdomen and the abdomen was inspected. Next under direct visualization three 5-mm ports were placed one subxiphoid and 2 subcostal. Next the gallbladder was elevated and retracted toward the right shoulder. The peritoneum was stripped from the gallbladder. The infundibulum was located and retracted laterally. Next the triangle of Calot was dissected and the cystic duct and cystic artery were identified. Cholangiograms were performed. The Mckeon clamp was used to clamp across the infundibulum and the catheter needle was inserted into the gallbladder. Under fluoroscopy contrast was instilled into the gallbladder and the common duct, cystic duct as well as proximal hepatic ducts were identified. There was good filling of the duodenum. There were no filling defects noted in the common bile duct. The clamp was removed as well as the needle and the infundibulum was grasped once more. Three hemolock clips were placed across the cystic duct. The cystic duct was then divided leaving 2 clips on the stump. The cystic artery was clipped and divided in the same fashion. The hook cautery was then used to take the gallbladder off of the gallbladder bed. Hemostasis was obtained. Gallbladder fossa was irrigated and no active bleeding or bile leakage was noted. Next the camera was introduced in the subxiphoid port. An Endopouch bag was placed through the umbilical port and the gallbladder was placed into it. The gallbladder was then removed through the umbilical incision. The camera was then reinserted through the umbilical port. The gallbladder fossa was inspected once more and noted to be hemostatic with no leaking bile. The abdomen was suctioned dry. The 5 mm ports were removed under direct visualization. The umbilical port was then removed and the air was removed from the abdomen. Next using an 0 Vicryl suture the umbilical fascia was closed in a [id number]-hl-sauls fashion. The umbilical port site was irrigated local anesthetic was administered to all the incisions. All the incisions were closed with interrupted subcuticular 4-0 Monocryl sutures followed by Steri-Strips and dressings. The patient was awoken and taken to PACU in stable condition. Admit VTE Documentation VTE Mechan Device Prophylaxis: SCD's
[2021-02-23] MEDS: 0.9% Normal Saline 1,000 ML 100 ML IV (15:49)
[2021-02-24] MEDS: 0.9% Normal Saline 1,000 ML 100 ML IV (01:27)
[2021-02-24 03:10] VITALS: BP 134/61; PULSE 67; RESP 18; TEMP 36.5; O2SAT 97
[2021-02-24 06:28] VITALS: BP 138/72; PULSE 76; RESP 16; TEMP 36.5; O2SAT 95
[2021-02-24 07:19] LABS: Absolute Lymphocyte Count 2.59 X10^3/uL (0.83-4.51); Absolute Neutrophil Count 10.4 X10^3/uL (2.0-7.7); Basophil# 0.05 X10^3/uL; Basophil% 0.4 % (0-1); Eosinophil# 0.02 X10^3/uL; Eosinophils% 0.1 % (0-5); Hematocrit 44.1 % (40-54); Hemoglobin 14.4 g/dL (13.0-16.5); Lymphocyte # 2.59 X10^3/ul (0.83-4.51); Lymphocyte % 18.2 % (19-41); Mean Corp Hgb Conc 32.7 g/dL (32-36); Mean Corpuscular Hgb 28.3 pg (27.0-32.0); Mean Corpuscular Volume 86.6 fL (80-94); Mean Platelet Vol. 11.7 fl (6.2-12.0); Monocyte# 1.06 X10^3/uL; Monocyte% 7.5 % (0-10); NRBC Flagged by Analyzer 0 % (0-5); Neutrophil # 10.41 X10^3/uL (2.7-7.7); Neutrophil % 73.2 % (47-70); Platelet Count 243 K/mm3 (150-450); RBC Distribution Width SD 40.7 fl (35.1-43.9); Red Blood Count 5.09 M/mm3 (4.6-6.2); White Blood Count 14.2 K/mm3 (4.4-11.0)
[2021-02-24 07:58] LABS: ALB/GLOB Ratio 0.8 RATIO (0.9-2.4); AST(SGOT) 141 U/L (15-37); Alanine Aminotransfer ALT/SGPT 535 U/L (16-61); Albumin, Serum 3.1 g/dL (3.2-5.0); Alkaline Phosphatase 162 U/L (45-117); Anion Gap 7 (5-15); BUN 12 mg/dL (7-18); BUN/Creat Ratio 11.7 RATIO (10-20); Calcium,Total 8.8 mg/dL (8.5-10.1); Chloride 105 mmol/L (98-107); Creatinine, Serum 1.03 mg/dL (0.70-1.30); EST Glomerular Filtration Rate 90 mL/min (>60); Est Glom Filt Rate - Afr Amer 108 mL/min (>60); Estimated Creatinine Clearance 103.91 ml/min; Globulin 4.1 g/dL (2.2-4.2); Glucose 106 mg/dL (74-106); Protein, Total 7.2 g/dL (6.4-8.2); Sodium Level 140 mmol/L (136-145)
[2021-02-24 07:59] VITALS: BP 142/84; PULSE 66; RESP 12; TEMP 36.8; O2SAT 100
--- NOTE | 2021-02-24 08:10 | PN.SURG_ITS ---
Subjective Subjective Patient is doing well with minimal abdominal pain is tolerating diet Objective Data Objective Data Vital Signs: Vital Signs Temp Pulse Resp BP Pulse Ox 98.2 F 66 12 142/84 H 100 02/24/21 07:59 02/24/21 07:59 02/24/21 07:59 02/24/21 07:59 02/24/21 07:59 Oxygen Flow Rate (L/min) 2 Oxygen Delivery Method Room Air Weight: 240 lb 4.862 oz Body Mass Index (BMI) 35.4 Intake & Output: Intake and Output for Last 24 Hours 02/22/21 02/23/21 02/24/21 23:59 23:59 23:59 Intake Total 1100 / 1100 1163.33 / 1163.33 Balance 1100 / 1100 1163.33 / 1163.33 Lab / Micro Data Result Diagrams: 02/24/21 06:42 02/24/21 06:42 Labs: Laboratory Results - last 24 hr 02/23/21 09:23: WBC 6.8, RBC 5.35, Hgb 15.3, Hct 45.7, MCV 85.4, MCH 28.6, MCHC 33.5, RDW Std Deviation 40.5, RDW Coeff of Narda 13.1, Plt Count 244, MPV 11.4, Immature Gran % (Auto) 0.300, Neut % (Auto) 62.4, Lymph % (Auto) 25.6, [place] % (Auto) 8.5, Eos % (Auto) 2.2, Baso % (Auto) 1.0, Absolute Neuts (auto) 4.2, Absolute Lymphs (auto) 1.74, Nucleated RBC % 0 02/23/21 09:23: Sodium 139, Potassium 4.3, Chloride 105, Carbon Dioxide 30.0, Anion Gap 4 L, BUN 11, Creatinine 1.05, Estim Creat Clear Calc 101.94, Est GFR (MDRD) Af Amer 106, Est GFR (MDRD) Non-Af 88, BUN/Creatinine Ratio 10.5, Glucose 118 H, Calcium 9.2, Total Bilirubin 2.00 H, Direct Bilirubin 1.15 H, AST 397 H, ALT 652 H, Alkaline Phosphatase 177 H, Total Protein 7.9, Albumin 3.4, Globulin 4.5 H, Lipase 92 02/24/21 06:42: WBC 14.2 H, RBC 5.09, Hgb 14.4, Hct 44.1, MCV 86.6, MCH 28.3, MCHC 32.7, RDW Std Deviation 40.7, RDW Coeff of Narda 13.0, Plt Count 243, MPV 11.7, Immature Gran % (Auto) 0.600, Neut % (Auto) 73.2 H, Lymph % (Auto) 18.2 L, [place] % (Auto) 7.5, Eos % (Auto) 0.1, Baso % (Auto) 0.4, Absolute Neuts (auto) 10.4 H, Absolute Lymphs (auto) 2.59, Nucleated RBC % 0 02/24/21 06:42: Sodium 140, Potassium 4.0, Chloride 105, Carbon Dioxide 28.0, Anion Gap 7, BUN 12, Creatinine 1.03, Estim Creat Clear Calc 103.91, Est GFR (MDRD) Af Amer 108, Est GFR (MDRD) Non-Af 90, BUN/Creatinine Ratio 11.7, Glucose 106, Calcium 8.8, Total Bilirubin 0.70, AST 141 H, ALT 535 H, Alkaline Phosphatase 162 H, Total Protein 7.2, Albumin 3.1 L, Globulin 4.1, Albumin/Globulin Ratio 0.8 L Micro: Microbiology 02/23/21 09:20 Nasal Secretion SARS-CoV-2 Antigen (Rapid) - Final Radiography Diagnostic Testing: Radiology Impression Cholangiogram 02/23/21 09:44 IMPRESSION: Unremarkable intraoperative cholangiogram. Electronically Signed: Reyes Figueroa MD at 14:04 EST , Service support , Physical Exam Const no apparent distress Resp normal respiratory effort Cardio regular rhythm GI soft to palpation and non-tender Assessment & Plan Assessment/Plan (1) Acute cholecystitis: PLAN: Patient is doing well and his bilirubin has returned to normal. He is tolerating regular diet and only has incisional pain. I will discharge him home. He will follow-up with me in 2 weeks. Willis Hess MD Pager: [facility] [address] [place] [address], [address] [place] [address] Office:
--- NOTE | 2021-02-24 08:15 | EX.PCM.DISCH ---
Discharge Instructions Procedure Gallbladder Diet Discharge Diet: Light diet - advance as tolerated Activity Discharge Activity: May Not Drive (for 2-3 days or while taking narcotic pain medications.) and - (Do not drive, work heavy equipment or sign legal documents for 24 hours.) May shower in (days): 1 Lifting Restrictions: 20 lbs for 2 weeks Additional Activity Instructions:: Pain medication may cause nausea. You should typically eat light foods as you take your pain medications. Pain medication may also cause constipation. If this is a problem for you, please discuss with your doctor. Dressing / Incision Call your doctor if your incision/area has: Continuous Slow Oozing, Sudden Increased Bleeding, Increased Pain/ Swelling, Increased Redness and Foul Smelling Discharge Call your doctor if you observe: Fever of 101 or Higher Suture Line Care: Avoid Pulling/Pushing and Avoid Pinching/Bending Remove Dressing in: 2 days Additional Dressing/Incision Instructions:: Leave operative bandaids on for 2 days. When you remove dressing, leave Steri-Strips on until your follow-up appointment, or until the Steri-Strips fall off on their own. Follow Up Care Please Follow Up With: Willis Hess MD When: Please call to schedule 2 week follow up appointment. [phone] Test Results: Test results from this visit will be discussed in further detail at your follow-up appointment, if applicable. Discharge Plan Admission Admit Date/Time: 02/23/21 13:22 Attending Provider: Willis Hess Primary Care Provider: Chika Brown Primary Discharge Orders/Prescriptions Prescriptions: New oxycodone 5 mg Tablet 5 - 10 mg PO Q4H PRN PRN (Reason: Pain Score 4-10) 5 Days Qty: 20 RF: 0 Continued prednisone 20 MG tablet 40 mg PO DAILY Qty: 10 RF: 0 ibuprofen 600 mg tablet 600 mg PO Q6H PRN (Reason: fever or pain) Qty: 30 RF: 0 Discontinued hydrocodone-acetaminophen [hydrocodone-acetaminophen] 1 TABLET tablet 1 tab PO Q6H PRN PRN (Reason: Pain) 3 Days Qty: 10 RF: 0 ondansetron [ondansetron] 4 MG tablet 4 mg PO Q8H PRN PRN (Reason: Nausea) Qty: 10 RF: 0 Referrals / Follow Up: Care Physician,Chika Primary [Primary Care Provider] - Disposition Disposition (needs filled in before D/C Order can be placed): Home, Self Care
== END 2021-02-24 09:50 | disposition home or self-care (01) ==
LOC: ED 09:49 → SDC 09:54 → MS2 09:55 → SDC 13:29 → MS2 13:29
PROVIDERS: Admitting Provider Surgery; Emergency Provider Emergency Medicine; Visit Provider Surgery
PROC: (CPT 47610; principal; 2021-02-23 14:55)
DX: K80.12 Calculus of gallbladder with acute and chronic cholecystitis without obstruction (principal)
CPT/HCPCS: 00790; 47563; 36415; 74300; 76000; 80048; 80053; 80076; 83690; 85025; 87426; 88304; 96361; 96374; 96375; 99218; 99251; 99285; J7030; A4216; G0378; G0463; J1610; J2405

== ENCOUNTER 2024-05-24 12:37 | Emergency (ER) | payer BC, SELFPAY ==
[2024-05-24 12:38] VITALS: BP 144/78; PULSE 90; RESP 15; TEMP 36.1; O2SAT 98; BMI 37.0
--- NOTE | 2024-05-24 12:48 | EX.ED.GENINJ ---
HPI History of Present Illness Chief Complaint: Head Injury Detail of Chief Complaint: Blunt facial trauma with swelling and deviated nose Informant: patient and spouse/S.O. Onset/Context/Timing Onset: Yesterday Mechanism/Context: Blunt Injury (Struck in face by a kicked soccer ball) Current Severity: Mild (With respect to nose pain) Maximum Severity: Severe (Time of incident.) Worsened by: Pain worse with palpation Relieved by: Nothing Associated Symptoms Associated Symptoms: Positive for Loss of consciousness; Negative for Parasthesias, Weakness, Loss of function, Inability to ambulate or Amnesia Length of loss of consciousness: Less than a minute Narrative Narrative: Patient is a 34-year-old male. He is playing soccer last evening. He was struck by kickball. He was hit in the face. He had bleeding from his nose at that time. He was dazed. He did have trouble sleeping. He does reports congestion in his nose. He did have a headache. He did have blurred vision. He denies nausea or vomiting. He denies paresthesia, anesthesia or motor weakness that is new. He denies problems with coordination or balance today. Patient does have a history of remote concussion. Prior similar symptoms: Yes Recent Illness/Hospitalization: No PFSH PFS Medical History (Updated 05/24/24 @ 13:[address] Rell Falcon MD) Acute cholecystitis Home Medications ?Medication ?Instructions ?Recorded ?Last Taken ?Type ibuprofen 600 mg tablet 600 mg PO Q6H PRN fever or pain 11/28/20 Unknown Rx #30 tabs Allergy/AdvReac Type Severity Reaction Status Date / Time No Known Allergies Allergy Verified 05/24/24 12:37 Family History Mother Parkinsons disease Surgical History (Updated 03/08/21 @ 09:[address] Willis Hess MD) S/P laparoscopic cholecystectomy Social History Smoking Status: Never smoker ROS ROS ED Constitutional Constitutional ED: Denies chills, fever(s), subjective or sweats Eyes Eyes: Denies blurry vision or change in vision ENT ENT ED: Reports other Details: Epistaxis time of the trauma, congestion, swelling of the nose with deviation to the right ; Denies ear pain, rhinorrhea or sore throat Cardiovascular Cardiovascular: Denies chest pain or palpitations Respiratory/Chest Respiratory/Chest: Denies cough, dyspnea or dyspnea on exertion Gastrointestinal Gastrointestinal: Denies nausea or vomiting Integumentary Denies rash Neurologic Neurologic: Reports headache(s); Denies paresthesias Hematologic/Lymphatic Hematologic/Lymphatic: Denies easy bleeding or easy bruising EXAM Physical Exam Const Vital Signs: 05/24/24 12:38 05/24/24 12:53 Temperature 97 F L Temperature Source Temporal Pulse Rate 90 Respiratory Rate 15 Respiratory Effort Normal Blood Pressure 144/78 H Blood Pressure Mean 100 Pulse Ox 98 Oxygen Delivery Method Room Air Positive well nourished and well developed Constitutional Narrative: Blood pressure is elevated. He does not have a diagnosis of hypertension. He is present on no medication. He has no allergies. General Appearance ED: well developed HEENT HEENT Narrative: There is swelling and discoloration of the nose. There is no septal deviation hematoma. There is no evidence of blood in the right or left vestibule. Ears are normal. TMs are normal. There is no evidence of dental trauma. Eyes PERRL and EOMs intact bilaterally General Eye ED: Yes other Other Details: There is no subconjunctival hemorrhage noted. There is no nystagmus. Neck full ROM General: Negative for tenderness Resp normal respiratory effort Cardio regular rhythm Rate: regular rate Extremity normal to inspection and full ROM Neuro oriented x3, CN's II-XII intact bilaterally, moves all extremities, no focal motor deficits, no sensory deficits noted and gait normal Neuro Narrative: There is no dysmetria. [place] Coma Scale: document GCS findings Spontaneous Obeys Commands Oriented 15 Sensorium / Orientation: alert Motor Exam: strength 5/5 throughout Deep Tendon Reflexes: Rt Triceps (C7): 1+, Lt Triceps (C7): 1+, Rt Biceps (C5, C6): 1+, Lt Biceps (C5, C6): 1+, Rt Brachioradialis (C6): 1+, Lt Brachioradialis (C6): 1+, Rt Patellar (L4): 1+, Lt Patellar (L4): 1+, Rt Ankle (S1): 1+ and Lt Ankle (S1): 1+ Deep Tendon Reflexes Back: Rt Patellar (L4): 1+, Lt Patellar (L4): 1+, Rt Ankle (S1): 1+ and Lt Ankle (S1): 1+ Plantar Reflex: Downgoing: bilateral (There was no clonus right or left.) Psych mental status grossly normal and thought process normal Skin no rashes or lesions noted, no wounds, skin turgor normal and no jaundice Skin Narrative: Slight swelling and bruising of the nose. MDM MDM MDM Narrative Medical decision making narrative: Per the [place] CT head rule and [place] rule imaging of the head is not indicated. Patient has chronic neck pain and has no new findings therefore will not x-ray neck. Will obtain x-ray of the nose to assess for fracture. This may represent contusion or injury to cartilage. Radiography Chest X-Ray - ED: Read by ED Physician (Three-view x-ray of the nose and from the interpreted by me at 1313. There is no evidence of fracture or deviation. Patient was made aware.) Treatment and Re-Evaluation Narrative: Patient was informed he has a concussion. Recommend that he goes to the [facility] [employer] website with regards to progression of activity. He was informed the quickest he will be able to get back on the field and playing is 7 days. Discharge Plan Triage Chief Complaint: Head Injury ED Provider: Rell Falcon Dx/Rx/DC Orders Clinical Impression: Concussion with loss of consciousness <= 30 min, Contusion of nose, initial encounter, Elevated blood-pressure reading without diagnosis of hypertension Instructions: ED Concussion, ED Hypertension, To Be Confirmed, ED Nasal Contusion Prescriptions: No Action ibuprofen 600 mg tablet 600 mg PO Q6H PRN (Reason: fever or pain) Qty: 30 0RF Primary Care Provider: Care Physician,No Primary Referrals: Reid Seaman MD [Med Staff - [employer]] - 1-2 Weeks Care Physician,No Primary [Primary Care Provider] - Print Language: Slovak Disposition Disposition: Home, Self Care
--- NOTE | 2024-05-24 12:55 | RAD_ITS ---
PROCEDURE: NASAL BONES MIN 3 VIEWS 05/24/2024 REASON FOR EXAM: BLUNT TRAUMA WITH DEVIATION TO RIGHT TECHNIQUE: 3 view(s) of the nasal bones. COMPARISON: None. RAD/Nasal Bones min 3 Views IMPRESSION: No fracture or dislocation is seen. The visualized paranasal sinuses and mastoid air cells appear clear. If clinical concern persists, short-term follow-up imaging may be obtained to r ule out a currently occult fracture. Reading Location: [id number]
== END 2024-05-24 13:25 | disposition home or self-care (01) ==
PROVIDERS: Emergency Provider Emergency Medicine; Visit Provider Emergency Medicine
DX: S06.0X1A Concussion with loss of consciousness of 30 minutes or less, initial encounter (principal); R03.0 Elevated blood-pressure reading, without diagnosis of hypertension; S00.33XA Contusion of nose, initial encounter; W21.02XA Struck by soccer ball, initial encounter; Y93.66 Activity, soccer
CPT/HCPCS: 70160; 99282